=== PATIENT | male | born 1965 | race Caucasian/White ===

== ENCOUNTER → 2016-06-15 06:29 | Day surgery (SDC) | payer BC ==
[~2016-06-15 06:29] MED LIST: Buffered Lidocaine 1% SYR 3ML* 3 ML/SYR SYRINGE INTRADERM ONE; DiMENhydriNATE IV* 50 MG/ML VIAL IV PUSH PRN; HYDROcodone/ACETAMIN 5-325 MG* 1 TAB PO PRN; HYDROmorphone INJ* 1 MG/ML CARPUJECT SYRINGE IV PRN; Midazolam* 1 MG/ML 5 ML VIAL (5 MG) ONE; Ondansetron INJ* 2 MG/ML VIAL IV PRN; Propofol* 10 MG/ML 20 ML BTL IV PUSH ONE; Succinylcholine* 20 MG/ML 10 ML VIAL ONE; fentaNYL* 50 MCG/ML 2 ML VIAL (100 MCG VIAL) IV PRN; fentaNYL* 50 MCG/ML 2 ML VIAL (100 MCG VIAL) ONE; oxyCODONE ORAL.SOLN* 5 MG/5 ML UDC ONE; oxyCODONE TAB* 5 MG TAB PO PRN
[2016-06-15 09:37] VITALS: BP 128/95
--- NOTE | 2016-06-16 00:12 | OP ---
DATE OF OPERATION: 06/15/16 - [facility] DATE OF : 65 SURGEON: Nicola Singh MD ANESTHESIOLOGIST: Jason Leavitt MD ANESTHESIA: General endotracheal anesthesia. PRE-OP DIAGNOSIS: Tonsillar hypertrophy. POST-OP DIAGNOSIS: Tonsillar hypertrophy. OPERATIVE PROCEDURE: Tonsillectomy. COMPLICATIONS: None. DISPOSITION: Good. SPECIMEN: Left and right tonsils. BLOOD LOSS: Minimal. DESCRIPTION OF PROCEDURE: The patient was taken to the operating room and placed in the supine position on the operating table. General anesthesia was induced and he was orotracheally intubated, turned and draped for the surgery. A Michele-David mouthgag was inserted, retractor was applied, suspended from the Yusuf stand. The right tonsil was grasped, manual traction was applied. Using Bovie cautery, it was dissected along its capsule removing it from the under- lying pharyngeal musculature. The left tonsil was grasped, manual traction was applied. Again, using Bovie cautery, it was dissected along its capsule removing it from underlying pharyngeal musculature. Hemostasis was assured in both tonsillar fossae using suction cautery. Michele-David mouthgag was released. Retraction again applied and hemostasis was ensured. Orogastric tube was inserted into the stomach. Stomach contents suctioned. Michele-David mouthgag was released and removed. The patient tolerated the procedure well, no complications, transferred to the recovery room in stable condition. [id number] #: [id number] MTDD
== END | disposition home or self-care (01) ==
LOC: OR 06:29
PROVIDERS: ATTEND Otolaryngology
DX: J35.1 Hypertrophy of tonsils (principal); G47.33 Obstructive sleep apnea (adult) (pediatric); Z99.81 Dependence on supplemental oxygen
CPT/HCPCS: 88304; A9270-GY; J0330; J2250; J2704; J3010